=== PATIENT | male | born 1965 | race Caucasian/White ===

== ENCOUNTER 2017-10-23 02:20 | Inpatient (IN) | payer SELFPAY ==
[2017-10-23] MEDS ORDERED: Sodium Chloride 0.9% 1,000 ML IV SCH (04:58)
[2017-10-23] MEDS ORDERED: Morphine 4 MG/ML VIAL IV PRN ×2 (05:00→05:01)
[2017-10-23 05:18] VITALS: BMI 23.8
[2017-10-23] MEDS ORDERED: Piperacillin/Tazobactam 4.5 GM in Sodium Chloride 0.9% 100 ML IVPB SCH ×2 (06:00→08:00)
[2017-10-23] MEDS ORDERED: hydrALAZINE 20 MG/ML VIAL SLOW IVP PRN (07:59)
[2017-10-23] MEDS ORDERED: Ondansetron ODT 4 MG TAB PO PRN (07:59)
[2017-10-23] MEDS ORDERED: VANCOMYCIN IVPB PRN (07:59)
[2017-10-23] MEDS ORDERED: Milk Of Magnesia 30 ML UDCUP PO PRN (07:59)
[2017-10-23] MEDS ORDERED: Eucerin (Mineral Oil/Petrolatum,White) 30 gm Jar TOP PRN (07:59)
[2017-10-23] MEDS ORDERED: Loperamide HCl 2 MG CAP PO PRN (07:59)
[2017-10-23] MEDS ORDERED: Chloraseptic Spray 180 ml Bottle PO PRN (07:59)
[2017-10-23] MEDS ORDERED: Artificial Tears 18 DROP/0.9 ML EA EYE PRN (07:59)
[2017-10-23] MEDS ORDERED: Senokot 8.6 MG TAB PO PRN (07:59)
[2017-10-23] MEDS ORDERED: Mag-Al 1200 mg/1200 mg/30 ML UDCUP PO PRN (07:59)
[2017-10-23] MEDS ORDERED: Ondansetron HCl/PF 4 MG/2 ML Vial IVP PRN (07:59)
[2017-10-23] MEDS ORDERED: Sodium Chloride 0.65% Nasal 44 ML BOT EA NARE PRN (07:59)
--- NOTE | 2017-10-23 08:06 | RAD ---
LEFT KNEE FOUR VIEWS: HISTORY: Pain and swelling of the left knee. FINDINGS: No fracture, dislocation, or bony destruction is seen. Soft tissue swelling is present anteriorly. POS: [facility]
[2017-10-23 08:21] LABS: Hemoglobin 13.7 g/dL (14.0-18.0); Mean Corpuscular HGB CONC 32.6 g/dL (32.0-36.0); Mean Corpuscular Hemoglobin 32.2 pg (27.0-31.0); Mean Corpuscular Volume 98.9 fl (80.0-94.0); Mean Platelet Volume 5.9 fL (7.4-10.4); Platelet Count 348 thou/uL (130-400); RBC Distribution Width 11.5 % (11.5-14.5); Red Blood Cell (RBC) Count 4.25 mill/uL (4.70-6.10); White Blood Cell (WBC) Count 20.8 thou/uL (4.8-10.8)
[2017-10-23 08:31] LABS: ALT (SGPT) 26 U/L (8-55); AST (SGOT) 20 U/L (5-34); Albumin 3.4 g/dL (3.5-5.0); Alkaline Phosphatase 82 U/L (40-150); Anion Gap 12 mmol/L (10-20); BUN (Urea Nitrogen) 19 mg/dL (8.4-25.7); Bilirubin, Total 1.5 mg/dL (0.2-1.2); Calc. Creatinine Clearance 89 mL/min (70-130); Calcium 8.8 mg/dL (7.8-10.44); Carbon Dioxide 24 mmol/L (22-29); Chloride 103 mmol/L (98-107); Estimated GFR-MDRD 77; Globulin 3.1 g/dL (2.4-3.5); Glucose 99 mg/dL (70-105); Protein, Total 6.5 g/dL (6.0-8.3); Sodium 135 mmol/L (136-145)
[2017-10-23] MEDS: Saccharomyces boulardii 250 MG CAP PO SCH (08:57)
[2017-10-23] MEDS: Enoxaparin Sodium 40 MG/0.4 ML SYRINGE SC SCH (08:57)
[2017-10-23] MEDS: Ketorolac Tromethamine 30 MG/ML VIAL IVP PRN (09:12)
--- NOTE | 2017-10-23 09:31 | CON ---
DATE OF CONSULTATION: 10/23/2017 REQUESTING PHYSICIAN: Dr. Alexey Lowry. CONSULTING PHYSICIAN: Fabio Garcia M.D. REASON FOR CONSULTATION: Left knee cellulitis, presumptive infrapatellar septic bursitis. BRIEF CLINICAL HISTORY: Shlomo is a 52-year-old male who was running fence line approximately 10 day s ago when he got his left knee stuck on some thorns. He was able to remove some of the thorns and o emani subsequent few days, he had swelling and redness of the left knee. He was seen treated with outp atient antibiotics and failed outpatient management; therefore, he presented to the emergency room ye sterday evening with significant amplification of pain, swelling, redness and he was admitted to the medicine service early this morning and our service was consulted for presumptive cellulitis. Arthro centesis was performed in the emergency room, but did not have the benefit of the results of this. P evy radiographs were also obtained which demonstrate just soft tissue swelling and no large effusion s, but the patient subjectively has been unable to stand, walk and bear whole lot of weight on this k nee. Range of motion has also been significantly diminished subjectively. He has had no constitutio nal symptoms, no fevers, nausea, vomiting, but the pain, swelling and redness is what brought him in. PAST MEDICAL HISTORY: Negative. PAST SURGICAL HISTORY: Negative. MEDICATIONS: None. ALLERGIES: No known drug allergies. Denies any contact allergies. SOCIAL HISTORY: Patient denies any ethanol or illicit drug abuse. He does smoke cigarettes. PHYSICAL EXAMINATION: Visual inspection of left lower extremity demonstrates him to indeed have diff use swelling around the infrapatellar area, both medially and laterally. Exquisite tenderness to alfredo ch is present in the inferolateral aspect of the knee. Abscess formation is strongly suspected, but there is no obvious fistula yet and there is no obvious fluctuance. It is quite full and significant tissue swelling is appreciated. The erythema extends up around the patella itself once medially up into the abductor region. It does nichole with pressure and again exquisite tenderness is noted aroun d the knee. Arthrocentesis site is noted in the superomedial approach. It does penetrate some of th e erythema. It does not look grossly infected. No drainage, but he has significant pain with attemp ts at range of motion. He is unable to bend the knee due to the exquisite discomfort and he is tende r to palpation; however, is neurovascularly intact distal to the lesion. Radiographs, four views left knee demonstrates soft tissue swelling as expected, but no gross effusio n, no bony abnormalities. IMPRESSION: 1. Left knee infrapatellar septic bursitis with significant cellulitis. 2. Failed outpatient management with antibiotics. PLAN: 1. The patient was started on Zosyn and vancomycin per the medicine team with presumption of staff. 2. N.p.o. after midnight. 3. Regular diet today. 4. We will plan for an incision and drainage, washout tomorrow in the operative suite due to the exc essive amount of discomfort the patient is experiencing. We will recheck him first thing in the morn ing to see if there is a loculation that can be incised.
[2017-10-23 09:51] LABS: Bilirubin Negative (Negative); Blood, Urine Negative (Negative); Clarity CLEAR (Clear); Glucose, Urine (Dipstick) Negative (Negative); Leukocyte Negative (Negative); Nitrite Negative (Negative); Protein, Urine (Dipstick) 30 mg/dL (Neg-Trace); Specific Gravity, Urine 1.029 (1.002-1.036); pH, Urine 6.5 (5.0-9.0)
[2017-10-23 09:53] LABS: Bacteria/HPF None Seen HPF (None Seen); Hyaline Casts/LPF 4-6 HYALINE CAST LPF (0-3 Hyaline); Pathc Cast-AUWi Flag 0.27 (0-2.49); RBC/HPF 0-3 HPF (0-3); Squamous Epithelial 0-3 HPF (0-3)
[2017-10-23 10:19] LABS: Band 3 % (5-11); Lymphocytes 14 % (21-51); MDiff Complete? YES; Monocytes 5 % (0-10); Neutrophil 74 % (42-75); RBC Morphology Normal; Reactive Lymphocytes 4 % (0-10)
--- NOTE | 2017-10-23 11:55 | HP ---
PRIMARY CARE PHYSICIAN: [facility] call admission. REASON FOR ADMISSION: Sepsis with left knee cellulitis. HISTORY OF PRESENT ILLNESS: A 52-year-old male who presented to the emergency room with complaint of left knee swelling, erythema, and tenderness. Patient reports that about 10 days ago, he was stuck with thorn around left knee. Subsequently, the patient noticed increasing swelling and he noticed more swelling the day before and erythema was getting worse the day before and he was having extreme pain with walking. Patient was evaluated locally in Urgent Care/emergency room and patient was given oral antibiotic therapy for cellulitis , but patient was not feeling any better and he was not having any improvement. Patient has severe throbbing pain in his left knee about 6-10/10 in intensity , which is getting worse with movement and walking. He was feeling subjective feverish at home and that is why he decided to come to the emergency room last night. In the emergency room, knee x-ray was negative for any effusion, but it was showing surrounding soft tissue swelling. REVIEW OF SYSTEMS: The following complete review of systems was negative, unless otherwise mentioned in the HPI or below: Constitutional: Weight loss or gain, ability to conduct usual activities. Skin: Rash, itching. Eyes: Double vision, pain. ENT/Mouth: Nose bleeding, neck stiffness, pain, tenderness. Cardiovascular: Palpitations, dyspnea on exertion, orthopnea. Respiratory: Shortness of breath, wheezing, cough, hemoptysis, fever or night sweats. Gastrointestinal: Poor appetite, abdominal pain, heartburn, nausea, vomiting, constipation, or diarrhea. Genitourinary: Urgency, frequency, dysuria, nocturia. Musculoskeletal: Pain, swelling. Neurologic/Psychiatric: Anxiety, depression. Allergy/Immunologic: Skin rash, bleeding tendency. Please see my HPI for pertinent positives and negatives. All other review of systems reviewed and negative except as mentioned in the HPI. PAST MEDICAL HISTORY: Reviewed and negative. PAST SURGICAL HISTORY: Reviewed and negative. PAST PSYCHIATRIC HISTORY: Reviewed and negative. SOCIAL HISTORY: Patient is and lives at home with family. No history of alcohol or other illicit drug abuse. He smoked cigarettes in variable numbers. FAMILY HISTORY: No strong family history of CAD, CVA or cancer. ALLERGIES: No known drug allergies. CURRENT HOME MEDICATIONS: The patient is not taking any prescribed or non- prescribed medication. EMERGENCY ROOM COURSE: Patient was given vancomycin 1 gram. PHYSICAL EXAMINATION: VITAL SIGNS: On arrival, blood pressure 138/78, pulse 104, respiratory rate 16 , temperature 99.4, saturation 92% on room air, weight 165 pounds. GENERAL: Patient is currently alert, awake, no obvious acute distress. HEAD: Normocephalic, atraumatic. EYES: Pupils round, reactive to light. Extraocular muscle intact. ENT: Oropharynx within normal limits. Moist mucous membranes. No oral lesions. No pharyngeal erythema, no exudate. NECK: Supple, no JVD, no thyromegaly, no carotid bruit, no jugular venous distention. LUNGS: Clear to auscultation without any rhonchi or rales. CARDIAC: S1, S2 regular, tachycardia, no murmur, no gallop, no rub. ABDOMEN: Soft, bowel sounds present, nontender, nondistended. No organomegaly , no mass, no suprapubic tenderness. BACK: Unremarkable, no CVA tenderness. EXTREMITIES: Upper extremity passive movements of all joints are normal. Lower extremity: Patient has abrasion over left lateral knee. Patient does have erythema, swelling of left knee with significant tenderness. The patient also has tenderness in lower thigh as well as upper legs. No calf tenderness. SKIN: No skin rash other than cellulitis of left knee. NEUROLOGIC: Nonfocal examination. The patient moves all 4 limbs. Plantar bilateral flexor. PSYCHIATRIC: Normal affect. SIGNIFICANT LABS: X-ray of the knee showing moderate soft tissue swelling, otherwise no acute process. CBC: WBC 20.8, hemoglobin 13.7, platelets 348 with bandemia. BMP: Sodium 135, potassium 4.0, chloride 103, carbon dioxide 24 , BUN 19, creatinine 1.01, glucose 99, calcium 8.8. LFT: AST 20, ALT 26, alkaline phosphatase 82, albumin 3.4. Urinalysis normal. Culture from the aspirate is negative so far. ASSESSMENT AND PLAN: 1. Left knee cellulitis after injury with a thorn. At this point, suspected for infrapatellar septic bursitis. The patient will need IV antibiotic therapy as he has associated sepsis. Orthopedic physician will be consulted and they will decide whether this patient needs any incision and debridement for suspected infrapatellar septic bursitis. We will keep him n.p.o. We will control his pain with morphine, Toradol, [place] and we will continue with broad spectrum antibiotic therapy with vancomycin and Zosyn and follow up on culture result. 2. Sepsis with systemic inflammatory response syndrome. Patient has fever, leukocytosis with bandemia, source of infection is a soft tissue infection with cellulitis and infrapatellar bursitis. The patient is already on broad spectrum antibiotic therapy. We will continue with IV fluid at 125 mL per hour and will continue broad spectrum antibiotic therapy with vancomycin and Zosyn and follow up on culture result. 3. Tobacco abuse disorder. Smoking cessation counseling given. Healthy lifestyle measures discussed with the patient. 4. Deep venous thrombosis prophylaxis. Lovenox 40 mg subcutaneously daily. 5. Gastrointestinal prophylaxis. Pepcid 20 mg p.o. b.i.d. 6. Code status: The patient is FULL CODE. The patient's is surrogate decision maker. Disposition plan based on clinical course. We are expecting patient's stay in hospital more than 2 midnights. Plan of care discussed with the patient in detail. MTDD
[2017-10-23] MEDS: Sodium Chloride 0.9% 1,000 ML IV SCH ×2 (11:56→20:38)
[2017-10-23] MEDS: Famotidine 20 MG TAB PO SCH ×2 (12:15→20:39)
[2017-10-23] MEDS: Piperacillin/Tazobactam 4.5 GM in Sodium Chloride 0.9% 100 ML IVPB SCH ×3 (12:16→23:17)
[2017-10-23] MEDS: Vancomycin HCl 1.25 GM in Sodium Chloride 0.9% 250 ML 250 ML IVPB SCH (14:40)
[2017-10-24] MEDS: Sodium Chloride 0.9% 1,000 ML IV SCH ×3 (03:00→19:52)
[2017-10-24] MEDS: Vancomycin HCl 1.25 GM in Sodium Chloride 0.9% 250 ML 250 ML IVPB SCH (03:00)
[2017-10-24] MEDS: Piperacillin/Tazobactam 4.5 GM in Sodium Chloride 0.9% 100 ML IVPB SCH ×4 (06:13→23:18)
[2017-10-24] MEDS: HYDROcodone/Acetaminophen 10/325 mg Tablet PO PRN ×2 (06:13→11:27)
[2017-10-24] MEDS ORDERED: Fentanyl 100 MCG/2 ML VIAL ONE (06:37)
[2017-10-24] MEDS ORDERED: Neomycin-Polymyxin 1 ML AMP ONE (06:53)
[2017-10-24] MEDS ORDERED: Meperidine HCl/PF 25 MG/ML VIAL SLOW IVP PRN (07:46)
[2017-10-24] MEDS ORDERED: Ondansetron HCl/PF 4 MG/2 ML Vial IVP PRN (07:46)
[2017-10-24] MEDS ORDERED: Promethazine HCl 25 MG/ML VIAL IM PRN (07:46)
[2017-10-24] MEDS ORDERED: Promethazine HCl 25 MG/ML VIAL SLOW IVP PRN (07:46)
[2017-10-24] MEDS ORDERED: FLU VACC QS2017-18 36 mo. & older 0.5 ML SYRINGE IM ONE (09:00)
[2017-10-24] MEDS: Enoxaparin Sodium 40 MG/0.4 ML SYRINGE SC SCH (09:12)
[2017-10-24] MEDS: Famotidine 20 MG TAB PO SCH ×2 (11:22→19:52)
[2017-10-24] MEDS: Saccharomyces boulardii 250 MG CAP PO SCH (11:22)
--- NOTE | 2017-10-24 12:03 | PDOC.PN ---
- Subjective Encounter Start Date: 10/24/17 Encounter Start Time: 09:00 Patient seen and examined. No new complaints. No overnight events - Objective Resuscitation Status: Resuscitation Status FULL:Full Resuscitation MAR Reviewed: Yes Vital Signs & Weight: Vital Signs (12 hours) Temp Pulse Resp BP Pulse Ox 10/24/17 11:15 97.5 F L 88 18 107/69 92 L 10/24/17 10:00 97.5 F L 90 20 116/59 L 94 L 10/24/17 09:30 97.8 F 93 18 120/78 94 L 10/24/17 09:00 97.9 F 92 20 117/74 93 L 10/24/17 05:17 94 L 10/24/17 04:00 98.1 F 91 20 118/77 94 L Weight Weight 165 lb 11.2 oz I&O: 10/23/17 10/24/17 10/25/17 06:59 06:59 06:59 Intake Total 280 3278 Output Total 1350 Balance 280 1928 Result Diagrams: 10/23/17 08:08 10/23/17 08:08 Additional Labs: Accuchecks 10/24/17 10:29 POC Glucose 115 H Phys Exam - Physical Examination Constitutional: NAD HEENT: PERRLA, moist MMs, sclera anicteric Neck: no JVD, supple Respiratory: no wheezing, no rales, no rhonchi Cardiovascular: RRR, no significant murmur, no rub Gastrointestinal: soft, non-tender, no distention, positive bowel sounds left knee cellulitis Neurological: non-focal, normal sensation Lymphatic: no nodes Psychiatric: normal affect, A&O x 3 Skin: no rash, normal turgor Dx/Plan (1) Cellulitis of left knee Code(s): L03.116 - CELLULITIS OF LEFT LOWER LIMB Status: Acute (2) Sepsis Code(s): A41.9 - SEPSIS, UNSPECIFIED ORGANISM Status: Acute (3) Tobacco abuse Code(s): Z72.0 - TOBACCO USE Status: Chronic - Plan cont current plan of care, 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 * today plan for I & D * continue IV vancomycin and zosyn * pain control * medication reviewed as below * symptomatic treatment. Review of Systems - Review of Systems Constitutional: negative: fever, chills, sweats, weakness, malaise, other ENT: negative: Ear Pain, Ear Discharge, Nose Pain, Nose Discharge, Nose Congestion, Mouth Pain, Mouth Swelling, Throat Pain, Throat Swelling, Other Respiratory: negative: Cough, Dry, Shortness of Breath, Hemoptysis, SOB with Excertion, Pleuritic Pain, Sputum, Wheezing Cardiovascular: negative: chest pain, palpitations, orthopnea, paroxysmal nocturnal dyspnea, edema, light headedness, other Gastrointestinal: negative: Nausea, Vomiting, Abdominal Pain, Diarrhea, Constipation, Melena, Hematochezia, Other Genitourinary: negative: Dysuria, Frequency, Incontinence, Hematuria, Retention , Other Musculoskeletal: Leg Pain. negative: Neck Pain, Shoulder Pain, Arm Pain, Back Pain, Hand Pain, Foot Pain, Other - Medications/Allergies Allergies/Adverse Reactions: Allergies Allergy/AdvReac Type Severity Reaction Status Date / Time No Known Allergies Allergy Verified 10/23/17 05:16 Medications: Current Medications Acetaminophen (Tylenol) 650 mg PO Q4H PRN PRN Reason: Headache/Fever or Pain Hydrocodone Bitart/Acetaminophen ([place] 10/325) 1 tab PO Q4H PRN PRN Reason: Moderate Pain (4-6) Last Admin: 10/24/17 11:27 Dose: 1 tab Al Hydroxide/Mg Hydroxide (Maalox) 30 ml PO Q6H PRN PRN Reason: Heartburn or Indigestion Artificial Tears (Tears Naturale) 0 drop EA EYE PRN PRN PRN Reason: Dry Eyes Enoxaparin Sodium (Lovenox) 40 mg SC 0900 [facility] Last Admin: 10/24/17 09:12 Dose: Not Given Famotidine (Pepcid) 20 mg PO BID [facility] Last Admin: 10/24/17 11:22 Dose: 20 mg Guaifenesin (Robitussin Sf) 200 mg PO Q4H PRN PRN Reason: Cough Hydralazine HCl (Apresoline) 10 mg SLOW IVP Q4H PRN PRN Reason: Systolic BP > 180 Piperacillin Sod/Tazobactam (Sod 4.5 gm/ Sodium Chloride) 100 mls @ 200 mls/hr IVPB Q6HR [facility] Last Admin: 10/24/17 11:22 Dose: 100 mls Vancomycin HCl 1.25 gm/ Sodium (Chloride) 250 mls @ 166.667 mls/hr IVPB 0300, 1500 [facility] Last Admin: 10/24/17 03:00 Dose: 250 mls Sodium Chloride (Normal Saline 0.9%) 1,000 mls @ 125 mls/hr IV .Q8H [facility] Last Admin: 10/24/17 09:17 Dose: 1,000 mls Ketorolac Tromethamine (Toradol) 15 mg IVP Q6H PRN PRN Reason: Mild Pain (1-3) Stop: 10/28/17 08:00 Last Admin: 10/23/17 09:12 Dose: 15 mg Loperamide HCl (Imodium) 2 mg PO PRN PRN PRN Reason: Diarrhea/Loose Stools Loratadine (Claritin) 10 mg PO DAILYPRN PRN PRN Reason: Sinus Symptoms Magnesium Hydroxide (Milk Of Magnesium) 30 ml PO DAILYPRN PRN PRN Reason: Constipation Mineral Oil/White Petrolatum (Eucerin Cream) 0 gm TOP BIDPRN PRN PRN Reason: Dry Skin Miscellaneous Medication (Pharmacy To Dose) 1 each IVPB PRN PRN PRN Reason: Pharmacy to dose Ondansetron HCl (Zofran Odt) 4 mg PO Q6H PRN PRN Reason: Nausea/Vomiting Ondansetron HCl (Zofran) 4 mg IVP Q6H PRN PRN Reason: Nausea/Vomiting Phenol (Chloraseptic [place] 180 Ml Bot) 0 ml PO PRN PRN PRN Reason: Sore Throat Saccharomyces Boulardii (Florastor) 250 mg PO DAILY [facility] Last Admin: 10/24/17 11:22 Dose: 250 mg Senna (Senokot) 2 tab PO HSPRN PRN PRN Reason: Constipation Sodium Chloride ([place] Nasal [place] 0.65%) 0 ml EA NARE QIDPRN PRN PRN Reason: Nasal Congestion Tramadol HCl (Ultram) 50 mg PO Q4H PRN PRN Reason: Moderate Pain (4-6) Zolpidem Tartrate (Ambien) 5 mg PO HSPRN PRN PRN Reason: Insomnia
--- NOTE | 2017-10-24 14:22 | OP ---
DATE OF SURGERY: 10/24/2017 PREOPERATIVE DIAGNOSIS: Septic prepatellar bursitis, left. POSTOPERATIVE DIAGNOSIS: Septic prepatellar bursitis, left. SURGICAL PROCEDURE: Incision and drainage of left septic prepatellar bursa. ANESTHESIA: General. SURGEON: Fabio aGrcia M.D. TOURNIQUET TIME: 13 minutes at 300 mmHg. SPECIMEN: Aspirate and swab sent for Gram stain culture and sensitivity. COMPLICATIONS: None. DRAINS: Proctor x1. OUTCOME: Satisfactory. INDICATIONS: The patient is a 52-year-old gentleman with a history of having a foreign stuck at the anterior knee through the skin. Over the next 5 days, he went on to develop redness and increasing p ain in the knee. His exam is consistent with a significant cellulitic component anteriorly at the kn ee as well as a full prepatellar bursitis. After discussion with patient including risks and benefit s, we decided to proceed with incision and drainage. Informed consent has been obtained. I believe all questions answered. DESCRIPTION OF PROCEDURE: After the induction of general anesthesia, a timeout was performed and the n a sterile prep and drape performed on the left lower extremity. The small puncture area where the foreign entered the skin was used as a guide for incision, this just to the lateral side of midline a nteriorly. The skin was then incised for a total length of approximately 3 inches. Once the skin conway d been fully incised with a knife, white purulent material came out from the bursa. This was fully e vacuated and the finger was used to sweep and break down any septum within the prepatellar bursa. An aspirate of this purulent material as well as a swab was sent to lab for Gram stain culture and sens itivity. Next, three liters of normal saline with antibiotic irrigant added, was irrigated throug h this prepatellar bursa with Pulsavac. A curette was also used to remove any necrotic fat or tissue prior to the irrigation. Once fully irrigated and the curette used to debride some devitalized tiss ue, a Proctor drain was placed in the prepatellar bursa and then the skin closed loosely with 3-0 nyl on. Following this, a gauze, Kerlix, and Eduardo wrap and a knee immobilizer was applied to the knee. I t should be noted that the limb was elevated prior to surgery and tourniquet inflated to 300 mmHg and then the tourniquet was let down at the completion of dressing. There were no complications. He to lerated the procedure well.
[2017-10-24 14:46] LABS: Vancomycin, Trough 8.9 ug/mL
[2017-10-24] MEDS: Vancomycin HCl 1.75 GM in Sodium Chloride 0.9% 500 ML IVPB SCH (15:51)
[2017-10-24] MEDS ORDERED: Propofol 200 MG/20 ML VIAL ONE (16:49)
[2017-10-24] MEDS ORDERED: Dexamethasone 20 MG/5 ML VIAL ONE (16:49)
[2017-10-24] MEDS ORDERED: Ketorolac Tromethamine 30 MG/ML VIAL ONE (16:49)
[2017-10-24] MEDS ORDERED: Ondansetron HCl/PF 4 MG/2 ML Vial ONE (16:49)
[2017-10-24] MEDS ORDERED: Lidocaine 1% PF 5 ML VIAL ONE (16:49)
[2017-10-25] MEDS: Vancomycin HCl 1.75 GM in Sodium Chloride 0.9% 500 ML IVPB SCH ×2 (03:02→16:21)
[2017-10-25] MEDS: Ketorolac Tromethamine 30 MG/ML VIAL IVP PRN (03:04)
[2017-10-25] MEDS: HYDROcodone/Acetaminophen 10/325 mg Tablet PO PRN ×3 (03:04→17:11)
[2017-10-25] MEDS: Sodium Chloride 0.9% 1,000 ML IV SCH (04:24)
[2017-10-25 04:31] LABS: #Lymphocytes 1.3 thou/uL (1.20-3.40); #Neutrophils 17.1 thou/uL (1.40-6.50); %Eosinophils 0.1 % (0.0-10.0); %Lymphocytes 6.8 % (21.0-51.0); %Neutrophils 88.1 % (42.0-75.0); Hemoglobin 12.1 g/dL (14.0-18.0); Mean Corpuscular Hemoglobin 32.7 pg (27.0-31.0); Mean Corpuscular Volume 99.1 fl (80.0-94.0); Mean Platelet Volume 6.7 fL (7.4-10.4); Platelet Count 345 thou/uL (130-400); RBC Distribution Width 11.4 % (11.5-14.5); Red Blood Cell (RBC) Count 3.69 mill/uL (4.70-6.10); White Blood Cell (WBC) Count 19.4 thou/uL (4.8-10.8)
[2017-10-25] MEDS: Piperacillin/Tazobactam 4.5 GM in Sodium Chloride 0.9% 100 ML IVPB SCH ×3 (06:23→20:45)
[2017-10-25] MEDS: Saccharomyces boulardii 250 MG CAP PO SCH (08:43)
[2017-10-25] MEDS: Enoxaparin Sodium 40 MG/0.4 ML SYRINGE SC SCH (08:43)
[2017-10-25] MEDS: Famotidine 20 MG TAB PO SCH ×2 (08:43→20:44)
--- NOTE | 2017-10-25 11:24 | PDOC.PN ---
- Subjective Encounter Start Date: 10/25/17 Encounter Start Time: 08:40 Patient seen and examined. No new complaints. No overnight events - Objective Resuscitation Status: Resuscitation Status FULL:Full Resuscitation MAR Reviewed: Yes Vital Signs & Weight: Vital Signs (12 hours) Temp Pulse Resp BP Pulse Ox 10/25/17 08:00 97.7 F 85 20 144/77 H 94 L Weight Weight 165 lb 11.2 oz I&O: 10/24/17 10/25/17 10/26/17 06:59 06:59 06:59 Intake Total 3278 3775 Output Total 1350 650 Balance 1928 3125 Result Diagrams: 10/25/17 03:44 10/23/17 08:08 Phys Exam - Physical Examination Constitutional: NAD HEENT: PERRLA, moist MMs, sclera anicteric Neck: no JVD, supple Respiratory: no wheezing, no rales, no rhonchi, clear to auscultation bilateral Cardiovascular: RRR, no significant murmur, no rub Gastrointestinal: soft, non-tender, no distention, positive bowel sounds Musculoskeletal: pulses present left knee with dressing Neurological: non-focal, normal sensation, moves all 4 limbs Lymphatic: no nodes Psychiatric: normal affect, A&O x 3 Skin: no rash, normal turgor Dx/Plan (1) Cellulitis of left knee Code(s): L03.116 - CELLULITIS OF LEFT LOWER LIMB Status: Acute (2) Sepsis Code(s): A41.9 - SEPSIS, UNSPECIFIED ORGANISM Status: Acute (3) Septic prepatellar bursitis of left knee Code(s): M71.162 - OTHER INFECTIVE BURSITIS, LEFT KNEE Status: Acute (4) Tobacco abuse Code(s): Z72.0 - TOBACCO USE Status: Chronic - Plan cont current plan of care, plan discussed w/ family, 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, DVT proph w/lovenox * continue vancomycin and zosyn * follow culture * wound care * pain control. * DC IVF * medication reviewed as below * symptomatic treatment * discussed with family bedside Review of Systems - Review of Systems ENT: negative: Ear Pain, Ear Discharge, Nose Pain, Nose Discharge, Nose Congestion, Mouth Pain, Mouth Swelling, Throat Pain, Throat Swelling, Other Respiratory: negative: Cough, Dry, Shortness of Breath, Hemoptysis, SOB with Excertion, Pleuritic Pain, Sputum, Wheezing Cardiovascular: negative: chest pain, palpitations, orthopnea, paroxysmal nocturnal dyspnea, edema, light headedness, other Gastrointestinal: negative: Nausea, Vomiting, Abdominal Pain, Diarrhea, Constipation, Melena, Hematochezia, Other Genitourinary: negative: Dysuria, Frequency, Incontinence, Hematuria, Retention , Other Musculoskeletal: Leg Pain. negative: Neck Pain, Shoulder Pain, Arm Pain, Back Pain, Hand Pain, Foot Pain, Other Skin: negative: Rash, Lesions, Adalid, Bruising, Other - Medications/Allergies Allergies/Adverse Reactions: Allergies Allergy/AdvReac Type Severity Reaction Status Date / Time No Known Allergies Allergy Verified 10/23/17 05:16 Medications: Current Medications Acetaminophen (Tylenol) 650 mg PO Q4H PRN PRN Reason: Headache/Fever or Pain Hydrocodone Bitart/Acetaminophen ([place] 10/325) 1 tab PO Q4H PRN PRN Reason: Moderate Pain (4-6) Last Admin: 10/25/17 08:42 Dose: 1 tab Al Hydroxide/Mg Hydroxide (Maalox) 30 ml PO Q6H PRN PRN Reason: Heartburn or Indigestion Artificial Tears (Tears Naturale) 0 drop EA EYE PRN PRN PRN Reason: Dry Eyes Enoxaparin Sodium (Lovenox) 40 mg SC 0900 [facility] Last Admin: 10/25/17 08:43 Dose: 40 mg Famotidine (Pepcid) 20 mg PO BID [facility] Last Admin: 10/25/17 08:43 Dose: 20 mg Guaifenesin (Robitussin Sf) 200 mg PO Q4H PRN PRN Reason: Cough Hydralazine HCl (Apresoline) 10 mg SLOW IVP Q4H PRN PRN Reason: Systolic BP > 180 Piperacillin Sod/Tazobactam (Sod 4.5 gm/ Sodium Chloride) 100 mls @ 200 mls/hr IVPB Q6HR [facility] Last Admin: 10/25/17 06:23 Dose: 100 mls Sodium Chloride (Normal Saline 0.9%) 1,000 mls @ 125 mls/hr IV .Q8H [facility] Last Admin: 10/25/17 04:24 Dose: Not Given Vancomycin HCl 1.75 gm/ Sodium (Chloride) 500 mls @ 250 mls/hr IVPB 0300,1500 [facility] Last Admin: 10/25/17 03:02 Dose: 500 mls Ketorolac Tromethamine (Toradol) 15 mg IVP Q6H PRN PRN Reason: Mild Pain (1-3) Stop: 10/28/17 08:00 Last Admin: 10/25/17 03:04 Dose: 15 mg Loperamide HCl (Imodium) 2 mg PO PRN PRN PRN Reason: Diarrhea/Loose Stools Loratadine (Claritin) 10 mg PO DAILYPRN PRN PRN Reason: Sinus Symptoms Magnesium Hydroxide (Milk Of Magnesium) 30 ml PO DAILYPRN PRN PRN Reason: Constipation Mineral Oil/White Petrolatum (Eucerin Cream) 0 gm TOP BIDPRN PRN PRN Reason: Dry Skin Miscellaneous Medication (Pharmacy To Dose) 1 each IVPB PRN PRN PRN Reason: Pharmacy to dose Ondansetron HCl (Zofran Odt) 4 mg PO Q6H PRN PRN Reason: Nausea/Vomiting Ondansetron HCl (Zofran) 4 mg IVP Q6H PRN PRN Reason: Nausea/Vomiting Phenol (Chloraseptic [place] 180 Ml Bot) 0 ml PO PRN PRN PRN Reason: Sore Throat Saccharomyces Boulardii (Florastor) 250 mg PO DAILY [facility] Last Admin: 10/25/17 08:43 Dose: 250 mg Senna (Senokot) 2 tab PO HSPRN PRN PRN Reason: Constipation Sodium Chloride ([place] Nasal [place] 0.65%) 0 ml EA NARE QIDPRN PRN PRN Reason: Nasal Congestion Tramadol HCl (Ultram) 50 mg PO Q4H PRN PRN Reason: Moderate Pain (4-6) Zolpidem Tartrate (Ambien) 5 mg PO HSPRN PRN PRN Reason: Insomnia
[2017-10-25] MEDS: Diabetic Tussin 200 MG/10 ML UDCUP PO PRN ×3 (11:36→20:45)
[2017-10-25] MEDS: Zolpidem Tartrate 5 MG TAB PO PRN (20:44)
[2017-10-25] MEDS: Loratadine 10 MG TAB PO PRN (20:44)
[2017-10-25] MEDS: traMADol HCl 50 MG TAB PO PRN (20:45)
[2017-10-26] MEDS: Diabetic Tussin 200 MG/10 ML UDCUP PO PRN ×4 (01:06→22:30)
[2017-10-26] MEDS ORDERED: Piperacillin/Tazobactam 4.5 GM in Sodium Chloride 0.9% 100 ML IVPB SCH (03:00)
[2017-10-26] MEDS: Acetaminophen 325 MG TAB PO PRN ×3 (03:39→20:15)
[2017-10-26] MEDS: traMADol HCl 50 MG TAB PO PRN (03:40)
[2017-10-26 06:07] LABS: Vancomycin, Trough 15.1 ug/mL
[2017-10-26] MEDS: Vancomycin HCl 1.75 GM in Sodium Chloride 0.9% 500 ML IVPB SCH ×2 (06:30→18:11)
[2017-10-26 07:32] LABS: #Eosinphils 0.1 thou/uL (0.0-0.7); #Monocytes 0.6 thou/uL (0.11-0.59); #Neutrophils 11.9 thou/uL (1.40-6.50); %Basophils 0.3 % (0.0-1.0); %Eosinophils 0.8 % (0.0-10.0); %Lymphocytes 7.3 % (21.0-51.0); %Monocytes 4.4 % (0.0-10.0); %Neutrophils 87.3 % (42.0-75.0); Hemoglobin 12.1 g/dL (14.0-18.0); Mean Corpuscular HGB CONC 33.3 g/dL (32.0-36.0); Mean Corpuscular Hemoglobin 32.9 pg (27.0-31.0); Mean Corpuscular Volume 98.9 fl (80.0-94.0); Mean Platelet Volume 6.4 fL (7.4-10.4); Platelet Count 385 thou/uL (130-400); RBC Distribution Width 11.5 % (11.5-14.5); Red Blood Cell (RBC) Count 3.69 mill/uL (4.70-6.10); White Blood Cell (WBC) Count 13.7 thou/uL (4.8-10.8)
[2017-10-26 07:46] LABS: Anion Gap 15 mmol/L (10-20); BUN (Urea Nitrogen) 10 mg/dL (8.4-25.7); Calc. Creatinine Clearance 92 mL/min (70-130); Calcium 8.7 mg/dL (7.8-10.44); Carbon Dioxide 23 mmol/L (22-29); Chloride 105 mmol/L (98-107); Estimated GFR-MDRD 80; Glucose 87 mg/dL (70-105); Potassium 3.5 mmol/L (3.5-5.1); Sodium 139 mmol/L (136-145)
[2017-10-26] MEDS: Famotidine 20 MG TAB PO SCH ×2 (08:04→20:12)
[2017-10-26] MEDS: Enoxaparin Sodium 40 MG/0.4 ML SYRINGE SC SCH (08:04)
[2017-10-26] MEDS: Saccharomyces boulardii 250 MG CAP PO SCH (08:05)
[2017-10-26] MEDS: Sulfameth/Trimethoprim DS 800-160mg TAB PO SCH ×2 (08:05→20:12)
[2017-10-26] MEDS ORDERED: Benzonatate 100 MG CAP PO PRN (10:16)
--- NOTE | 2017-10-26 10:17 | PDOC.PN ---
- Subjective Encounter Start Date: 10/26/17 Encounter Start Time: 08:40 pt has cough, no fever, less pain Patient seen and examined. No overnight events - Objective Resuscitation Status: Resuscitation Status FULL:Full Resuscitation MAR Reviewed: Yes Vital Signs & Weight: Vital Signs (12 hours) Temp Pulse Resp BP Pulse Ox 10/26/17 08:00 99 F 97 22 H 95 10/26/17 07:42 99 F 97 22 H 135/69 95 10/26/17 03:31 100 F H 102 H 20 168/84 H 91 L 10/26/17 00:06 98.2 F 89 18 159/79 H 95 Weight Weight 165 lb 11.2 oz I&O: 10/25/17 10/26/17 10/27/17 06:59 06:59 06:59 Intake Total 3775 2997 Output Total 650 Balance 3125 2997 Result Diagrams: 10/26/17 05:21 10/26/17 05:21 Phys Exam - Physical Examination Constitutional: NAD HEENT: PERRLA, moist MMs, sclera anicteric Neck: no JVD, supple Respiratory: no wheezing, no rales, no rhonchi Cardiovascular: RRR, no significant murmur, no rub Gastrointestinal: soft, non-tender, no distention, positive bowel sounds Musculoskeletal: no edema, pulses present left knee with dressing and brace Neurological: non-focal, normal sensation, moves all 4 limbs Psychiatric: normal affect, A&O x 3 Skin: no rash, normal turgor Dx/Plan (1) Cellulitis of left knee Code(s): L03.116 - CELLULITIS OF LEFT LOWER LIMB Status: Acute (2) Sepsis Code(s): A41.9 - SEPSIS, UNSPECIFIED ORGANISM Status: Acute (3) Septic prepatellar bursitis of left knee Code(s): M71.162 - OTHER INFECTIVE BURSITIS, LEFT KNEE Status: Acute (4) Tobacco abuse Code(s): Z72.0 - TOBACCO USE Status: Chronic - Plan cont current plan of care, 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 * add tessalon, mucinex * dc zosyn * add bactrim * continue vancomycin * wound care * pain control * expecting discharge soon * ortho following. Review of Systems - Review of Systems Constitutional: negative: fever, chills, sweats, weakness, malaise, other ENT: negative: Ear Pain, Ear Discharge, Nose Pain, Nose Discharge, Nose Congestion, Mouth Pain, Mouth Swelling, Throat Pain, Throat Swelling, Other Respiratory: Cough. negative: Dry, Shortness of Breath, Hemoptysis, SOB with Excertion, Pleuritic Pain, Sputum, Wheezing Cardiovascular: negative: chest pain, palpitations, orthopnea, paroxysmal nocturnal dyspnea, edema, light headedness, other Gastrointestinal: negative: Nausea, Vomiting, Abdominal Pain, Diarrhea, Constipation, Melena, Hematochezia, Other Genitourinary: negative: Dysuria, Frequency, Incontinence, Hematuria, Retention , Other Musculoskeletal: Leg Pain. negative: Neck Pain, Shoulder Pain, Arm Pain, Back Pain, Hand Pain, Foot Pain, Other Neurological: negative: Weakness, Numbness, Incoordination, Change in Speech, Confusion, Seizures, Other - Medications/Allergies Allergies/Adverse Reactions: Allergies Allergy/AdvReac Type Severity Reaction Status Date / Time No Known Allergies Allergy Verified 10/23/17 05:16 Medications: Current Medications Acetaminophen (Tylenol) 650 mg PO Q4H PRN PRN Reason: Headache/Fever or Pain Last Admin: 10/26/17 03:39 Dose: 650 mg Hydrocodone Bitart/Acetaminophen ([place] 10/325) 1 tab PO Q4H PRN PRN Reason: Moderate Pain (4-6) Last Admin: 10/25/17 17:11 Dose: 1 tab Al Hydroxide/Mg Hydroxide (Maalox) 30 ml PO Q6H PRN PRN Reason: Heartburn or Indigestion Artificial Tears (Tears Naturale) 0 drop EA EYE PRN PRN PRN Reason: Dry Eyes Enoxaparin Sodium (Lovenox) 40 mg SC 0900 [facility] Last Admin: 10/26/17 08:04 Dose: 40 mg Famotidine (Pepcid) 20 mg PO BID [facility] Last Admin: 10/26/17 08:04 Dose: 20 mg Guaifenesin (Robitussin Sf) 200 mg PO Q4H PRN PRN Reason: Cough Last Admin: 10/26/17 08:05 Dose: 200 mg Hydralazine HCl (Apresoline) 10 mg SLOW IVP Q4H PRN PRN Reason: Systolic BP > 180 Vancomycin HCl 1.75 gm/ Sodium (Chloride) 500 mls @ 250 mls/hr IVPB 0600,1800 [facility] Last Admin: 10/26/17 06:30 Dose: 500 mls Ketorolac Tromethamine (Toradol) 15 mg IVP Q6H PRN PRN Reason: Mild Pain (1-3) Stop: 10/28/17 08:00 Last Admin: 10/25/17 03:04 Dose: 15 mg Loperamide HCl (Imodium) 2 mg PO PRN PRN PRN Reason: Diarrhea/Loose Stools Loratadine (Claritin) 10 mg PO DAILYPRN PRN PRN Reason: Sinus Symptoms Last Admin: 10/25/17 20:44 Dose: 10 mg Magnesium Hydroxide (Milk Of Magnesium) 30 ml PO DAILYPRN PRN PRN Reason: Constipation Mineral Oil/White Petrolatum (Eucerin Cream) 0 gm TOP BIDPRN PRN PRN Reason: Dry Skin Miscellaneous Medication (Pharmacy To Dose) 1 each IVPB PRN PRN PRN Reason: Pharmacy to dose Ondansetron HCl (Zofran Odt) 4 mg PO Q6H PRN PRN Reason: Nausea/Vomiting Ondansetron HCl (Zofran) 4 mg IVP Q6H PRN PRN Reason: Nausea/Vomiting Phenol (Chloraseptic [place] 180 Ml Bot) 0 ml PO PRN PRN PRN Reason: Sore Throat Saccharomyces Boulardii (Florastor) 250 mg PO DAILY [facility] Last Admin: 10/26/17 08:05 Dose: 250 mg Senna (Senokot) 2 tab PO HSPRN PRN PRN Reason: Constipation Sodium Chloride ([place] Nasal [place] 0.65%) 0 ml EA NARE QIDPRN PRN PRN Reason: Nasal Congestion Tramadol HCl (Ultram) 50 mg PO Q4H PRN PRN Reason: Moderate Pain (4-6) Last Admin: 10/26/17 03:40 Dose: 50 mg Trimethoprim/Sulfamethoxazole (Bactrim Ds) 1 tab PO BID [facility] Last Admin: 10/26/17 08:05 Dose: 1 tab Zolpidem Tartrate (Ambien) 5 mg PO HSPRN PRN PRN Reason: Insomnia Last Admin: 10/25/17 20:44 Dose: 5 mg
[2017-10-26] MEDS ORDERED: Fentanyl 100 MCG/2 ML VIAL SLOW IVP SCH (11:30)
--- NOTE | 2017-10-26 12:15 | PRG ---
DATE OF SERVICE: 10/26/2017 SUBJECTIVE: Shlomo is now postoperative day #2 from incision, drainage, exploration of the left knee infrapatellar septic bursitis. Culture revealed methicillin-resistant Staph aureus as expected clin lor. Subjectively, he has also developed a cough and medicine is following this, I believe he has had a flu swab pending. The patient does smoke. OBJECTIVE: VITAL SIGNS: Temperature 99, pulse 97, respiratory rate 22, blood pressure 135/69. GENERAL: He is alert and oriented to person, place, time, and situation. Grossly nonfocal. EXTREMITIES: Visual inspection of the left lower extremity demonstrates his knee to have Eduardo bandage and dressing is to be pulled down. He still has some erythema surrounding his operative site. It d oes extend to medial leg. Overall, swelling is about the same. 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 LABORATORY DATA: White blood cell count today is 13.7. IMPRESSION: 1. Left knee septic infrapatellar bursitis with abscess secondary to methicillin-resistant Staphyloc occus aureus. 2. New onset cough. Etiology to be determined. PLAN: 1. Consult wound care to evaluate and treat. 2. Redress his wound today and have Wound Care evaluate, consider a wound VAC. 3. Recheck tomorrow.
[2017-10-26] MEDS: Ketorolac Tromethamine 30 MG/ML VIAL IVP PRN (16:23)
[2017-10-26] MEDS: guaiFENesin ER 600 MG TAB PO SCH (20:12)
[2017-10-26] MEDS: Loratadine 10 MG TAB PO PRN (20:12)
[2017-10-26] MEDS: Zolpidem Tartrate 5 MG TAB PO PRN (20:12)
[2017-10-26] MEDS: Oseltamivir 75 MG CAP PO SCH (21:06)
[2017-10-27] MEDS: traMADol HCl 50 MG TAB PO PRN (01:02)
[2017-10-27] MEDS: Diabetic Tussin 200 MG/10 ML UDCUP PO PRN ×4 (04:31→20:54)
[2017-10-27] MEDS: Vancomycin HCl 1.75 GM in Sodium Chloride 0.9% 500 ML IVPB SCH ×2 (05:01→18:26)
[2017-10-27] MEDS: Acetaminophen 325 MG TAB PO PRN (05:32)
[2017-10-27 08:34] LABS: #Eosinphils 0.1 thou/uL (0.0-0.7); #Lymphocytes 0.8 thou/uL (1.20-3.40); #Monocytes 0.7 thou/uL (0.11-0.59); #Neutrophils 6.5 thou/uL (1.40-6.50); %Basophils 0.1 % (0.0-1.0); %Eosinophils 0.9 % (0.0-10.0); %Lymphocytes 10.2 % (21.0-51.0); %Neutrophils 79.8 % (42.0-75.0); Hemoglobin 12.8 g/dL (14.0-18.0); Mean Corpuscular HGB CONC 32.4 g/dL (32.0-36.0); Mean Corpuscular Hemoglobin 31.8 pg (27.0-31.0); Mean Corpuscular Volume 98.3 fl (80.0-94.0); Mean Platelet Volume 5.8 fL (7.4-10.4); Platelet Count 371 thou/uL (130-400); RBC Distribution Width 11.7 % (11.5-14.5); Red Blood Cell (RBC) Count 4.03 mill/uL (4.70-6.10); White Blood Cell (WBC) Count 8.1 thou/uL (4.8-10.8)
[2017-10-27] MEDS: Sulfameth/Trimethoprim DS 800-160mg TAB PO SCH ×2 (08:43→20:52)
[2017-10-27] MEDS: guaiFENesin ER 600 MG TAB PO SCH ×2 (08:43→20:52)
[2017-10-27] MEDS: Oseltamivir 75 MG CAP PO SCH ×2 (08:43→20:52)
[2017-10-27] MEDS: Famotidine 20 MG TAB PO SCH ×2 (08:43→20:51)
[2017-10-27] MEDS: Saccharomyces boulardii 250 MG CAP PO SCH (08:43)
[2017-10-27 08:44] LABS: Anion Gap 12 mmol/L (10-20); BUN (Urea Nitrogen) 11 mg/dL (8.4-25.7); Calc. Creatinine Clearance 88 mL/min (70-130); Calcium 8.7 mg/dL (7.8-10.44); Carbon Dioxide 24 mmol/L (22-29); Chloride 104 mmol/L (98-107); Estimated GFR-MDRD 76; Glucose 86 mg/dL (70-105); Potassium 3.5 mmol/L (3.5-5.1); Sodium 136 mmol/L (136-145)
[2017-10-27] MEDS: Enoxaparin Sodium 40 MG/0.4 ML SYRINGE SC SCH (08:44)
--- NOTE | 2017-10-27 10:19 | PDOC.PN ---
- Subjective Encounter Start Date: 10/27/17 Encounter Start Time: 09:30 has cough, sore throat, left knee pain Patient seen and examined. No overnight events - Objective Resuscitation Status: Resuscitation Status FULL:Full Resuscitation MAR Reviewed: Yes Vital Signs & Weight: Vital Signs (12 hours) Temp Pulse Resp BP BP Pulse Ox 10/27/17 08:00 98.5 F 88 22 H 162/77 H 93 L 10/27/17 04:00 99.9 F H 101 H 20 164/74 H 94 L 10/27/17 00:00 99.0 F 102 H 20 168/83 H 95 Weight Weight 165 lb 11.2 oz I&O: 10/26/17 10/27/17 10/28/17 06:59 06:59 06:59 Intake Total 2997 2833 Output Total 0 Balance 2997 2833 Result Diagrams: 10/27/17 08:17 10/27/17 08:17 Phys Exam - Physical Examination Constitutional: NAD HEENT: PERRLA, moist MMs, sclera anicteric erythema pharynx Neck: no JVD, supple Respiratory: no wheezing, no rales, no rhonchi Cardiovascular: RRR, no significant murmur, no rub Gastrointestinal: soft, non-tender, no distention, positive bowel sounds Musculoskeletal: no edema, pulses present Neurological: non-focal, normal sensation, moves all 4 limbs Lymphatic: no nodes Psychiatric: normal affect, A&O x 3 Skin: no rash, normal turgor Dx/Plan (1) Cellulitis of left knee Code(s): L03.116 - CELLULITIS OF LEFT LOWER LIMB Status: Acute (2) Sepsis Code(s): A41.9 - SEPSIS, UNSPECIFIED ORGANISM Status: Acute (3) Septic prepatellar bursitis of left knee Code(s): M71.162 - OTHER INFECTIVE BURSITIS, LEFT KNEE Status: Acute (4) Tobacco abuse Code(s): Z72.0 - TOBACCO USE Status: Chronic (5) Influenza A Code(s): J10.1 - FLU DUE TO OTH IDENT INFLUENZA VIRUS W OTH RESP MANIFEST Status: Acute - Plan cont current plan of care, 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 * wound vac applied * continue tamiflu * continue vancomycin and bactrim * medication reviewed as below * symptomatic treatment * social work for wound vac arrangement if needed. Review of Systems - Review of Systems ENT: negative: Ear Pain, Ear Discharge, Nose Pain, Nose Discharge, Nose Congestion, Mouth Pain, Mouth Swelling, Throat Pain, Throat Swelling, Other Respiratory: negative: Cough, Dry, Shortness of Breath, Hemoptysis, SOB with Excertion, Pleuritic Pain, Sputum, Wheezing Cardiovascular: negative: chest pain, palpitations, orthopnea, paroxysmal nocturnal dyspnea, edema, light headedness, other Gastrointestinal: negative: Nausea, Vomiting, Abdominal Pain, Diarrhea, Constipation, Melena, Hematochezia, Other Genitourinary: negative: Dysuria, Frequency, Incontinence, Hematuria, Retention , Other Musculoskeletal: negative: Neck Pain, Shoulder Pain, Arm Pain, Back Pain, Hand Pain, Leg Pain, Foot Pain, Other Skin: negative: Rash, Lesions, Adalid, Bruising, Other - Medications/Allergies Allergies/Adverse Reactions: Allergies Allergy/AdvReac Type Severity Reaction Status Date / Time No Known Allergies Allergy Verified 10/23/17 05:16 Medications: Current Medications Acetaminophen (Tylenol) 650 mg PO Q4H PRN PRN Reason: Headache/Fever or Pain Last Admin: 10/27/17 05:32 Dose: 650 mg Hydrocodone Bitart/Acetaminophen ([place] 10/325) 1 tab PO Q4H PRN PRN Reason: Moderate Pain (4-6) Last Admin: 10/25/17 17:11 Dose: 1 tab Al Hydroxide/Mg Hydroxide (Maalox) 30 ml PO Q6H PRN PRN Reason: Heartburn or Indigestion Artificial Tears (Tears Naturale) 0 drop EA EYE PRN PRN PRN Reason: Dry Eyes Benzonatate (Tessalon) 100 mg PO Q4H PRN PRN Reason: Cough Last Admin: 10/27/17 01:02 Dose: 100 mg Enoxaparin Sodium (Lovenox) 40 mg SC 0900 [facility] Last Admin: 10/27/17 08:44 Dose: 40 mg Famotidine (Pepcid) 20 mg PO BID [facility] Last Admin: 10/27/17 08:43 Dose: 20 mg Fentanyl (Sublimaze) 50 mcg SLOW IVP ONE [facility] Stop: 10/27/17 11:31 Last Admin: 10/26/17 13:40 Dose: 50 mcg Guaifenesin (Robitussin Sf) 200 mg PO Q4H PRN PRN Reason: Cough Last Admin: 10/27/17 08:44 Dose: 200 mg Guaifenesin (Mucinex) 600 mg PO Q12HR [facility] Last Admin: 10/27/17 08:43 Dose: 600 mg Hydralazine HCl (Apresoline) 10 mg SLOW IVP Q4H PRN PRN Reason: Systolic BP > 180 Vancomycin HCl 1.75 gm/ Sodium (Chloride) 500 mls @ 250 mls/hr IVPB 0600,1800 [facility] Last Admin: 10/27/17 05:01 Dose: 500 mls Ketorolac Tromethamine (Toradol) 15 mg IVP Q6H PRN PRN Reason: Mild Pain (1-3) Stop: 10/28/17 08:00 Last Admin: 10/26/17 16:23 Dose: 15 mg Loperamide HCl (Imodium) 2 mg PO PRN PRN PRN Reason: Diarrhea/Loose Stools Loratadine (Claritin) 10 mg PO DAILYPRN PRN PRN Reason: Sinus Symptoms Last Admin: 10/26/17 20:12 Dose: 10 mg Magnesium Hydroxide (Milk Of Magnesium) 30 ml PO DAILYPRN PRN PRN Reason: Constipation Mineral Oil/White Petrolatum (Eucerin Cream) 0 gm TOP BIDPRN PRN PRN Reason: Dry Skin Miscellaneous Medication (Pharmacy To Dose) 1 each IVPB PRN PRN PRN Reason: Pharmacy to dose Ondansetron HCl (Zofran Odt) 4 mg PO Q6H PRN PRN Reason: Nausea/Vomiting Ondansetron HCl (Zofran) 4 mg IVP Q6H PRN PRN Reason: Nausea/Vomiting Oseltamivir Phosphate (Tamiflu) 75 mg PO BID [facility] Stop: 10/31/17 09:01 Last Admin: 10/27/17 08:43 Dose: 75 mg Phenol (Chloraseptic [place] 180 Ml Bot) 0 ml PO PRN PRN PRN Reason: Sore Throat Last Admin: 10/26/17 21:06 Dose: 1 spr Saccharomyces Boulardii (Florastor) 250 mg PO DAILY [facility] Last Admin: 10/27/17 08:43 Dose: 250 mg Senna (Senokot) 2 tab PO HSPRN PRN PRN Reason: Constipation Sodium Chloride ([place] Nasal [place] 0.65%) 0 ml EA NARE QIDPRN PRN PRN Reason: Nasal Congestion Tramadol HCl (Ultram) 50 mg PO Q4H PRN PRN Reason: Moderate Pain (4-6) Last Admin: 10/27/17 01:02 Dose: 50 mg Trimethoprim/Sulfamethoxazole (Bactrim Ds) 1 tab PO BID [facility] Last Admin: 10/27/17 08:43 Dose: 1 tab Zolpidem Tartrate (Ambien) 5 mg PO HSPRN PRN PRN Reason: Insomnia Last Admin: 10/26/17 20:12 Dose: 5 mg
--- NOTE | 2017-10-27 10:19 | PRG ---
DATE OF SERVICE: 10/27/2017 ORTHOPEDIC PROGRESS NOTE SUBJECTIVE: Shlomo feels about the same. His flu swab came back positive for influenza. His knee s till continues to have some pinkness surrounding it, but his white blood cell count has normalized at 8.1. Original presentation was 20. His neutrophil count is 79.8, his lymphocytes are 10.2. Overal l, he still feels lousy, but his knee swelling had not gotten worse. Wound care evaluated, pulled hi s drain yesterday and placed a wound VAC. OBJECTIVE: VITAL SIGNS: His temperature was 99.9 at 0400 this morning, currently is 98.5. GENERAL: He looks better. He is more talkative, alert, and responsive. His cough is not as noticea ble today as it was yesterday. It is certainly not as frequent. His incision, VAC is placed, a ques tion of some fluctuance on the medial aspect of the infrapatellar bursa. He still has mild erythema extending up the mid thigh medially. ASSESSMENT: 1. Left knee infrapatellar septic bursitis with methicillin-resistant Staphylococcus aureus. 2. Persistent cellulitis, left medial mid thigh, question of incomplete evacuation or secondary locu lation. 3. Influenza. PLAN: Continue vancomycin and Bactrim. Continue wound VAC, out of bed as much as possible, continue to follow.
[2017-10-27] MEDS: Ketorolac Tromethamine 30 MG/ML VIAL IVP PRN (16:35)
[2017-10-27 18:04] LABS: Vancomycin, Trough 15.5 ug/mL
[2017-10-27] MEDS: Zolpidem Tartrate 5 MG TAB PO PRN (20:52)
[2017-10-28] MEDS: Vancomycin HCl 1.75 GM in Sodium Chloride 0.9% 500 ML IVPB SCH (05:58)
[2017-10-28] MEDS: traMADol HCl 50 MG TAB PO PRN (05:58)
[2017-10-28] MEDS: Diabetic Tussin 200 MG/10 ML UDCUP PO PRN (05:59)
[2017-10-28] MEDS: Oseltamivir 75 MG CAP PO SCH ×2 (09:00→21:10)
[2017-10-28] MEDS: Famotidine 20 MG TAB PO SCH ×2 (09:00→21:10)
[2017-10-28] MEDS: guaiFENesin ER 600 MG TAB PO SCH ×2 (09:01→21:09)
[2017-10-28] MEDS: Enoxaparin Sodium 40 MG/0.4 ML SYRINGE SC SCH (09:01)
[2017-10-28] MEDS: Saccharomyces boulardii 250 MG CAP PO SCH (09:01)
[2017-10-28] MEDS: Sulfameth/Trimethoprim DS 800-160mg TAB PO SCH (09:01)
--- NOTE | 2017-10-28 10:35 | PDOC.PN ---
- Subjective Encounter Start Date: 10/28/17 Encounter Start Time: 09:00 Patient seen and examined. No new complaints. No overnight events - Objective Resuscitation Status: Resuscitation Status FULL:Full Resuscitation MAR Reviewed: Yes Vital Signs & Weight: Vital Signs (12 hours) Temp Pulse Resp BP Pulse Ox 10/28/17 08:00 97.9 F 85 20 138/88 93 L 10/28/17 04:00 98.3 F 84 18 160/89 H 92 L 10/28/17 00:00 99.0 F 84 18 148/91 H 92 L Weight Admit Weight 165 lb Weight 165 lb 11.2 oz I&O: 10/27/17 10/28/17 10/29/17 06:59 06:59 06:59 Intake Total 2833 4100 Output Total 0 0 Balance 2833 4100 Result Diagrams: 10/27/17 08:17 10/27/17 08:17 Phys Exam - Physical Examination Constitutional: NAD HEENT: PERRLA, moist MMs, sclera anicteric Neck: no nodes, no JVD, supple, full ROM Respiratory: no wheezing, no rales, no rhonchi Cardiovascular: RRR, no significant murmur, no rub Gastrointestinal: soft, non-tender, no distention, positive bowel sounds Musculoskeletal: no edema, pulses present left knee with wound vac Neurological: non-focal, normal sensation Psychiatric: normal affect, A&O x 3 Skin: no rash, normal turgor Dx/Plan (1) Cellulitis of left knee Code(s): L03.116 - CELLULITIS OF LEFT LOWER LIMB Status: Acute (2) Sepsis Code(s): A41.9 - SEPSIS, UNSPECIFIED ORGANISM Status: Acute (3) Septic prepatellar bursitis of left knee Code(s): M71.162 - OTHER INFECTIVE BURSITIS, LEFT KNEE Status: Acute (4) Tobacco abuse Code(s): Z72.0 - TOBACCO USE Status: Chronic (5) Influenza A Code(s): J10.1 - FLU DUE TO OTH IDENT INFLUENZA VIRUS W OTH RESP MANIFEST Status: Acute - Plan cont current 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 Review of Systems - Review of Systems ENT: negative: Ear Pain, Ear Discharge, Nose Pain, Nose Discharge, Nose Congestion, Mouth Pain, Mouth Swelling, Throat Pain, Throat Swelling, Other Respiratory: negative: Cough, Dry, Shortness of Breath, Hemoptysis, SOB with Excertion, Pleuritic Pain, Sputum, Wheezing Cardiovascular: negative: chest pain, palpitations, orthopnea, paroxysmal nocturnal dyspnea, edema, light headedness, other Gastrointestinal: negative: Nausea, Vomiting, Abdominal Pain, Diarrhea, Constipation, Melena, Hematochezia, Other Genitourinary: negative: Dysuria, Frequency, Incontinence, Hematuria, Retention , Other Musculoskeletal: negative: Neck Pain, Shoulder Pain, Arm Pain, Back Pain, Hand Pain, Leg Pain, Foot Pain, Other Skin: negative: Rash, Lesions, Adalid, Bruising, Other - Medications/Allergies Allergies/Adverse Reactions: Allergies Allergy/AdvReac Type Severity Reaction Status Date / Time No Known Allergies Allergy Verified 10/23/17 05:16 Medications: Current Medications Acetaminophen (Tylenol) 650 mg PO Q4H PRN PRN Reason: Headache/Fever or Pain Last Admin: 10/27/17 05:32 Dose: 650 mg Hydrocodone Bitart/Acetaminophen ([place] 10/325) 1 tab PO Q4H PRN PRN Reason: Moderate Pain (4-6) Last Admin: 10/25/17 17:11 Dose: 1 tab Al Hydroxide/Mg Hydroxide (Maalox) 30 ml PO Q6H PRN PRN Reason: Heartburn or Indigestion Artificial Tears (Tears Naturale) 0 drop EA EYE PRN PRN PRN Reason: Dry Eyes Benzonatate (Tessalon) 100 mg PO Q4H PRN PRN Reason: Cough Last Admin: 10/27/17 01:02 Dose: 100 mg Enoxaparin Sodium (Lovenox) 40 mg SC 0900 [facility] Last Admin: 10/28/17 09:01 Dose: 40 mg Famotidine (Pepcid) 20 mg PO BID [facility] Last Admin: 10/28/17 09:00 Dose: 20 mg Guaifenesin (Robitussin Sf) 200 mg PO Q4H PRN PRN Reason: Cough Last Admin: 10/28/17 05:59 Dose: 200 mg Guaifenesin (Mucinex) 600 mg PO Q12HR [facility] Last Admin: 10/28/17 09:01 Dose: 600 mg Hydralazine HCl (Apresoline) 10 mg SLOW IVP Q4H PRN PRN Reason: Systolic BP > 180 Loperamide HCl (Imodium) 2 mg PO PRN PRN PRN Reason: Diarrhea/Loose Stools Loratadine (Claritin) 10 mg PO DAILYPRN PRN PRN Reason: Sinus Symptoms Last Admin: 10/26/17 20:12 Dose: 10 mg Magnesium Hydroxide (Milk Of Magnesium) 30 ml PO DAILYPRN PRN PRN Reason: Constipation Mineral Oil/White Petrolatum (Eucerin Cream) 0 gm TOP BIDPRN PRN PRN Reason: Dry Skin Miscellaneous Medication (Pharmacy To Dose) 1 each IVPB PRN PRN PRN Reason: Pharmacy to dose Ondansetron HCl (Zofran Odt) 4 mg PO Q6H PRN PRN Reason: Nausea/Vomiting Ondansetron HCl (Zofran) 4 mg IVP Q6H PRN PRN Reason: Nausea/Vomiting Oseltamivir Phosphate (Tamiflu) 75 mg PO BID [facility] Stop: 10/31/17 09:01 Last Admin: 10/28/17 09:00 Dose: 75 mg Phenol (Chloraseptic [place] 180 Ml Bot) 0 ml PO PRN PRN PRN Reason: Sore Throat Last Admin: 10/26/17 21:06 Dose: 1 spr Saccharomyces Boulardii (Florastor) 250 mg PO DAILY [facility] Last Admin: 10/28/17 09:01 Dose: 250 mg Senna (Senokot) 2 tab PO HSPRN PRN PRN Reason: Constipation Sodium Chloride ([place] Nasal [place] 0.65%) 0 ml EA NARE QIDPRN PRN PRN Reason: Nasal Congestion Tramadol HCl (Ultram) 50 mg PO Q4H PRN PRN Reason: Moderate Pain (4-6) Last Admin: 10/28/17 05:58 Dose: 50 mg Trimethoprim/Sulfamethoxazole (Bactrim Ds) 1 tab PO BID [facility] Last Admin: 10/28/17 09:01 Dose: 1 tab Zolpidem Tartrate (Ambien) 5 mg PO HSPRN PRN PRN Reason: Insomnia Last Admin: 10/27/17 20:52 Dose: 5 mg
[2017-10-28] MEDS: HYDROcodone/Acetaminophen 10/325 mg Tablet PO PRN (10:58)
[2017-10-28] MEDS ORDERED: diphenhydrAMINE 25 MG CAP PO PRN (19:35)
[2017-10-28] MEDS: Zolpidem Tartrate 5 MG TAB PO PRN (21:10)
[2017-10-29 07:56] VITALS: BP 146/80; TEMP 97.9
[2017-10-29] MEDS: Saccharomyces boulardii 250 MG CAP PO SCH (08:31)
[2017-10-29] MEDS: Famotidine 20 MG TAB PO SCH (08:31)
[2017-10-29] MEDS: Oseltamivir 75 MG CAP PO SCH (08:31)
[2017-10-29] MEDS: guaiFENesin ER 600 MG TAB PO SCH (08:31)
[2017-10-29] MEDS: Enoxaparin Sodium 40 MG/0.4 ML SYRINGE SC SCH (08:34)
--- NOTE | 2017-10-29 10:11 | PDOC.PN ---
- Subjective Encounter Start Date: 10/29/17 Encounter Start Time: 07:40 Patient seen and examined. No new complaints. No overnight events - Objective Resuscitation Status: Resuscitation Status FULL:Full Resuscitation MAR Reviewed: Yes Vital Signs & Weight: Vital Signs (12 hours) Temp Pulse Resp BP Pulse Ox 10/29/17 08:00 97.9 F 80 16 92 L 10/29/17 07:55 97.9 F 80 16 146/80 H 92 L Weight Admit Weight 165 lb Weight 165 lb 11.2 oz I&O: 10/28/17 10/29/17 10/30/17 06:59 06:59 06:59 Intake Total 4100 2300 Output Total 0 Balance 4100 2300 Result Diagrams: 10/27/17 08:17 10/27/17 08:17 Phys Exam - Physical Examination Constitutional: NAD HEENT: PERRLA, moist MMs, sclera anicteric Neck: no JVD, supple Respiratory: no wheezing, no rales, no rhonchi Cardiovascular: RRR, no significant murmur, no rub Gastrointestinal: soft, non-tender, no distention, positive bowel sounds Musculoskeletal: no edema, pulses present Neurological: non-focal, normal sensation, moves all 4 limbs Psychiatric: normal affect, A&O x 3 Skin: no rash, normal turgor Dx/Plan (1) Cellulitis of left knee Code(s): L03.116 - CELLULITIS OF LEFT LOWER LIMB Status: Acute (2) Sepsis Code(s): A41.9 - SEPSIS, UNSPECIFIED ORGANISM Status: Acute (3) Septic prepatellar bursitis of left knee Code(s): M71.162 - OTHER INFECTIVE BURSITIS, LEFT KNEE Status: Acute (4) Tobacco abuse Code(s): Z72.0 - TOBACCO USE Status: Chronic (5) Influenza A Code(s): J10.1 - FLU DUE TO OTH IDENT INFLUENZA VIRUS W OTH RESP MANIFEST Status: Acute - Plan cont current plan of care, plan discussed w/ family, 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, 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 * dc bactrim due to rash * doxy on discharge * will dc when ortho ok and wound care arranged\ * medication reviewed as below * symptomatic treatment Review of Systems - Review of Systems ENT: negative: Ear Pain, Ear Discharge, Nose Pain, Nose Discharge, Nose Congestion, Mouth Pain, Mouth Swelling, Throat Pain, Throat Swelling, Other Respiratory: negative: Cough, Dry, Shortness of Breath, Hemoptysis, SOB with Excertion, Pleuritic Pain, Sputum, Wheezing Cardiovascular: negative: chest pain, palpitations, orthopnea, paroxysmal nocturnal dyspnea, edema, light headedness, other Genitourinary: negative: Dysuria, Frequency, Incontinence, Hematuria, Retention , Other Musculoskeletal: negative: Neck Pain, Shoulder Pain, Arm Pain, Back Pain, Hand Pain, Leg Pain, Foot Pain, Other - Medications/Allergies Allergies/Adverse Reactions: Allergies Allergy/AdvReac Type Severity Reaction Status Date / Time No Known Allergies Allergy Verified 10/23/17 05:16 Medications: Current Medications Acetaminophen (Tylenol) 650 mg PO Q4H PRN PRN Reason: Headache/Fever or Pain Last Admin: 10/27/17 05:32 Dose: 650 mg Hydrocodone Bitart/Acetaminophen ([place] 10/325) 1 tab PO Q4H PRN PRN Reason: Moderate Pain (4-6) Last Admin: 10/28/17 10:58 Dose: 1 tab Al Hydroxide/Mg Hydroxide (Maalox) 30 ml PO Q6H PRN PRN Reason: Heartburn or Indigestion Artificial Tears (Tears Naturale) 0 drop EA EYE PRN PRN PRN Reason: Dry Eyes Benzonatate (Tessalon) 100 mg PO Q4H PRN PRN Reason: Cough Last Admin: 10/27/17 01:02 Dose: 100 mg Diphenhydramine HCl (Benadryl) 25 mg PO Q6H PRN PRN Reason: Itching Enoxaparin Sodium (Lovenox) 40 mg SC 0900 [facility] Last Admin: 10/29/17 08:34 Dose: Not Given Famotidine (Pepcid) 20 mg PO BID [facility] Last Admin: 10/29/17 08:31 Dose: 20 mg Guaifenesin (Robitussin Sf) 200 mg PO Q4H PRN PRN Reason: Cough Last Admin: 10/28/17 05:59 Dose: 200 mg Guaifenesin (Mucinex) 600 mg PO Q12HR [facility] Last Admin: 10/29/17 08:31 Dose: 600 mg Hydralazine HCl (Apresoline) 10 mg SLOW IVP Q4H PRN PRN Reason: Systolic BP > 180 Loperamide HCl (Imodium) 2 mg PO PRN PRN PRN Reason: Diarrhea/Loose Stools Loratadine (Claritin) 10 mg PO DAILYPRN PRN PRN Reason: Sinus Symptoms Last Admin: 10/26/17 20:12 Dose: 10 mg Magnesium Hydroxide (Milk Of Magnesium) 30 ml PO DAILYPRN PRN PRN Reason: Constipation Mineral Oil/White Petrolatum (Eucerin Cream) 0 gm TOP BIDPRN PRN PRN Reason: Dry Skin Last Admin: 10/28/17 21:25 Dose: 1 applic Ondansetron HCl (Zofran Odt) 4 mg PO Q6H PRN PRN Reason: Nausea/Vomiting Ondansetron HCl (Zofran) 4 mg IVP Q6H PRN PRN Reason: Nausea/Vomiting Oseltamivir Phosphate (Tamiflu) 75 mg PO BID [facility] Stop: 10/31/17 09:01 Last Admin: 10/29/17 08:31 Dose: 75 mg Phenol (Chloraseptic [place] 180 Ml Bot) 0 ml PO PRN PRN PRN Reason: Sore Throat Last Admin: 10/26/17 21:06 Dose: 1 spr Saccharomyces Boulardii (Florastor) 250 mg PO DAILY [facility] Last Admin: 10/29/17 08:31 Dose: 250 mg Senna (Senokot) 2 tab PO HSPRN PRN PRN Reason: Constipation Sodium Chloride ([place] Nasal [place] 0.65%) 0 ml EA NARE QIDPRN PRN PRN Reason: Nasal Congestion Tramadol HCl (Ultram) 50 mg PO Q4H PRN PRN Reason: Moderate Pain (4-6) Last Admin: 10/28/17 05:58 Dose: 50 mg Zolpidem Tartrate (Ambien) 5 mg PO HSPRN PRN PRN Reason: Insomnia Last Admin: 10/28/17 21:10 Dose: 5 mg
--- NOTE | 2017-10-29 13:55 | DIS ---
DATE OF ADMISSION: 10/23/2017 DATE OF DISCHARGE: 10/29/2017 PRIMARY CARE PHYSICIAN: [facility] call admission. DISCHARGE DISPOSITION: Home. PRIMARY DISCHARGE DIAGNOSES: 1. Cellulitis of left knee. 2. Septic prepatellar bursitis of left knee status post incision and drainage. 3. Sepsis. 4. Influenza A. SECONDARY DISCHARGE DIAGNOSIS: Tobacco abuse disorder. PRIMARY PROCEDURE/OPERATION: I&D was performed by Dr. Garcia for septic prepatellar bursitis. RADIOLOGICAL INVESTIGATION: Knee x-ray. SIGNIFICANT LABORATORY DATA: Hemoglobin 12.8, WBC 8.1, platelet count 371, creatinine 1.02. CRP 7.2 0. Urinalysis normal. Blood culture negative. Culture from bursa fluid grew MRSA. Influenza A pos itive. DISCHARGE MEDICATIONS: Doxycycline 100 mg p.o. b.i.d. for 10 days, Tylenol #3 1-2 tablets q.6 hourly p.r.n. for pain. CONTRAINDICATIONS: None. CODE STATUS: FULL CODE. INPATIENT CONSULTANTS: Dr. Garcia was consulted while in hospital. TEST RESULTS PENDING ON DISCHARGE: None. ALLERGIES: Bactrim. DISCHARGE PLAN: Post hospital, the patient will follow up with primary care physician in 1 week. Th e patient will follow up with Dr. Garcia in 1 week. HOSPITAL COURSE: A 52-year-old male who was admitted by me. Please see my HPI for further details. He was having left knee cellulitis. He was also suspected for septic left prepatellar bursitis. We consulted orthopedic physician and they did I&D. After that, the patient was requiring wound VAC. Before discharge, we arranged disposable wound VAC as well. Orthopedic cleared him for discharge. W angus in hospital, he had acute cough and we checked the influenza screen and it was positive for infl uenza A. The patient has finished influenza treatment while in hospital. The patient is doing very w ell. He is afebrile, tolerating p.o. well. Patient is given healthy lifestyle measures discussed an d his sepsis resolved. He will follow up with orthopedic physician as instructed. All new medicatio n prescriptions were sent to his pharmacy, Tylenol #3 was given on discharge. The patient is seen and examined at bedside today. Please see the progress note from today for furth er details.
== END 2017-10-29 16:10 | disposition home or self-care (01) | DRG 854 ==
LOC: ERS 02:20 → T4-B 05:08
PROVIDERS: ADMIT Family Medicine; ATTEND Family Medicine
PROC: 0M9P00Z Drainage of Left Knee Bursa and Ligament with Drainage Device, Open Approach (ICD-10-PCS; principal; 2017-10-24)
DX: A41.9 Sepsis, unspecified organism (principal); L03.116 Cellulitis of left lower limb; M71.162 Other infective bursitis, left knee; F17.210 Nicotine dependence, cigarettes, uncomplicated; B95.62 Methicillin resistant Staphylococcus aureus infection as the cause of diseases classified elsewhere; J10.1 Influenza due to other identified influenza virus with other respiratory manifestations; Z88.1 Allergy status to other antibiotic agents
CPT/HCPCS: 20610; 36415; 36416; 80048; 80053; 80202; 81001; 85025; 86140; 87070; 87077; 87147; 87186; 87205; 96365; J1100; J1650; J1885; J2001; J2405; J2543; J2704; J3010; J3370; J7050